=== PATIENT | male | born 1990 ===

== ENCOUNTER 2016-04-16 19:24 | Emergency (ER) | payer SELFPAY ==
[~2016-04-16] VITALS: Ht 170.2 cm; Wt 60.9 kg
[2016-04-16 19:29] VITALS: Ht 170.2 cm; Wt 60.9 kg
== END 2016-04-16 21:36 | disposition left against medical advice (07) ==
LOC: FTE 19:24
DX: Z53.21 Procedure and treatment not carried out due to patient leaving prior to being seen by health care provider (principal)